=== PATIENT | female | born 1960 | race Caucasian/White ===

== ENCOUNTER 2025-01-14 17:16 | Emergency (ER) | payer MEDICARE, MEDICAID, SELFPAY ==
--- NOTE | ~2025-01-14 | US_ITS ---
CLINICAL HISTORY: pain Venous duplex ultrasound left upper extremity Comparison: None provided Findings: Accessible deep venous segments are fully compressible with normal Doppler color flow and spectral tracings. IMPRESSION: 1. Negative for left upper extremity deep vein thrombosis. This document has been electronically signed by: Carlos Collins MD on 01/14/2025 19:01:52
[2025-01-14 17:58] VITALS: BP 183/86; PULSE 102; RESP 20; TEMP 36.6; O2SAT 98; BMI 33.2
--- NOTE | 2025-01-14 17:58 | ED.GENADULT ---
HPI - General Adult General Chief complaint: Extremity Injury, Upper Stated complaint: left arm red and swollen Time Seen by Provider: 01/14/25 18:55 History of Present Illness ED Provider: Danilo Alvarado MD HPI narrative: [age] female with remote left forearm orthopedic surgery with hardware. She developed a few days ago mild swelling and redness of the left dorsal forearm she was evaluated at [facility] including with orthopedic consultation there. She comes back in for evaluation of pain. She has not been taking any medications. Was not prescribed antibiotics. Related Data Previous Rx's ?Medication ?Instructions ?Recorded cefadroxil 500 mg capsule 500 mg PO BID 7 days #14 caps 01/14/25 Allergies Allergy/AdvReac Type Severity Reaction Status Date / Time diclofenac Allergy Unknown Unknown Verified 01/14/25 18:01 fluoxetine (Prozac) Allergy Unknown Unknown Verified 01/14/25 18:01 pneumococcal vaccine Allergy Unknown Unknown Verified 01/14/25 18:01 Sulfa (Sulfonamide Allergy Unknown Unknown Verified 01/14/25 18:01 Antibiotics) tramadol Allergy Unknown Unknown Verified 01/14/25 18:01 vancomycin Allergy Unknown Unknown Verified 01/14/25 18:01 [facility] Social History Social History Advance Directives: Yes Advance Directives on File: Yes Advance Directives Date on File: 01/14/25 Do you have a plan to hurt others: No Plan Physical Exam ED Exam Exam: GENERAL: Well appearing. No apparent distress. Alert. HEAD/NECK: No visual trauma. EYES: Normal to inspection. No conjunctival erythema. No discharge. ENMT: Hearing grossly normal. External nose normal. RESPIRATORY: Respiratory effort normal. CARDIOVASCULAR: Additional details (Grossly well perfused). SKIN: No jaundice. Mild erythema with induration bout 8 cm x 3 cm left dorsal forearm directly overlying the mid radius and nearby remote surgical scar. There was no diffuse or circumferential swelling. No breaks in the skin. No fluctuance underlying this. She has intact and painless supination pronation. Elbow is without effusion and has full range of motion. Upper arm unremarkable. Neurovascularly intact limb left upper extremity NEUROLOGICAL: Alert. Moving all extremities x4. Additional details (No gross motor deficits. Normal tone. ). PSYCHIATRIC: Alert. Appearance appropriate for situation. Vital Signs: Vital Signs - 24 hr 01/14/25 17:58 Temperature 97.8 F Pulse Rate 102 H Respiratory Rate 20 Blood Pressure 183/86 H Pulse Oximetry 98 Oxygen Delivery Method Room Air BMI result Body Mass Index 33.2 Course Course Course Narrative: RME, this is a rapid medical exam performed by Johnny Grier please refer to primary provider for complete H&P- 64-year-old female presents for evaluation of left arm pain and swelling. It has been like that for the last 3 or 4 days. She went to [facility] and had blood work but was ultimately discharged without any treatment. She does have a history of factor 5 Leiden. Plan for an ultrasound to rule out DVT and labs. She is anticoagulated on Eliquis Medications Administered Discontinued Medications Generic Name Dose Route Start Last Admin Trade Name Freq PRN Reason Stop Dose Admin Cephalexin HCl 500 mg 01/14/25 19:33 01/14/25 19:52 Cephalexin 500 Mg Capsule PO 01/14/25 19:34 500 mg ONCE ONE Administration Medical Decision Making Medical Decision Making MDM Narrative: Medical Decision Making: [age] female with left arm pain redness. I was able to review [facility] notes which revealed an x-ray showing no malpositioning of the hardware see below. The patient's without constitutional symptoms. No circumferential swelling of the left arm. DVT excluded a left upper extremity by ultrasound here. Focal area of erythema and induration is quite mild appearing she does not report significant spreading since her ED visit yesterday. I feel this is probably simple cellulitis though can not completely exclude in infected hardware. Orthopedics did see her at [facility] in did not indicate that she required any operative management. I would suggest the patient follow up with Orthopedics here we will start her on oral antibiotics for presumed cellulitis uncomplicated. Certainly no gas, rapid spreading or constitutional symptoms/hemodynamic instability Preliminary Favored Differential Diagnosis: Cellulitis, dermatitis, focal allergic reaction, deep musculoskeletal infection less likely, deep or hardware involves infection less likely among additional considered etiologies Testing Interpreted Independently: ?See below for details Radiology or Lab testing Results Reviewed: ?See below for details Consults: ?See below for details Independent Historians/External Chart Reviews: ?See below for details Social Determinants of Health Impacting MDM/Planning: ?See below for details External Record Review External record reviewed: Outside ED record ([facility] see below) I read the orthopedics consult from [facility]: XRAY shows plate without gas, or gross hardware malpositioning. Left forearm pain (M79.632):?S/p?radial shaft ORIF 40 years ago in [place] Plan: No acute orthopedic surgical intervention indicated at this time.? There is no concerns?for?infection, compartment syndrome, vascular injury at this time.??She may use a sling?as needed for offloading. ?Ice and elevation as needed for pain and edema control.? She is advised?to schedule follow-up at [facility] office after discharge?and can call the office at [phone] for an appointment.? Questions asked and answered. ?She was provided with return precautions. Tendon station: Dr. Babak Gar Discharge Plan Discharge Clinical Impression: Cellulitis Patient Disposition: Home, Self-Care Instructions: Cellulitis (ED) Additional Instructions: DISCHARGE DIAGNOSES: Likely cellulitis of the left forearm HISTORY OF PRESENTATION: ?Redness swelling pain in the left forearm and left upper arm EMERGENCY DEPARTMENT COURSE,TESTS, TREATMENTS: While in the ED today you had an ultrasound that excludes blood clot. Blood work was ordered initially but I do not feel it needed to be performed. You had no fever and no rapid spread of the infected appearing area. X-ray was reviewed without hardware malpositioning from [facility] yesterday. DISCHARGE MEDICATIONS: ?[We have made no changes to your regular medication regimen] we have added Keflex to your regimen for 1 week FOLLOW-UP: ?Call your primary or general physician soon as possible to discuss your symptoms, your ED visit and to discuss follow up plans Continue with previously recommended orthopedic follow up [facility] or call our orthopedic office given that the area of infection is directly overlying remote orthopedic hardware INSTRUCTIONS ?& RETURN PRECAUTIONS: If any symptoms change first call your primary physician, if it is after-hours your primary doctors office should have a provider control clerk head you can speak with. If the symptoms are severe or very concerning to you then call 911 or return to the ED. Danilo Alvarado MD Emergency Physician [facility] Prescriptions: New cefadroxil 500 mg capsule 500 mg PO BID 7 Days Qty: 14 0RF Referrals: [facility] [Provider Group, Hand Surgery] Referral Note: If you continued to have pain redness or it worsens call orthopedics for follow up Interventions: ED Discharge Assessment Last Done: 01/14/25 20:10 Discharge Date/Time: 01/14/25 20:12 Print Language: Surinamese
--- NOTE | 2025-01-14 19:33 | MHC.EDTECH ---
Attempted to draw blood, labs verbally canceled to this tech per DO Christiano
[2025-01-14 20:10] VITALS: BP 148/88; PULSE 89; RESP 20; TEMP 36.6; O2SAT 99
--- OUTSIDE RECORDS SUMMARY | 2025-01-14 21:47 | XMS_ITS | Clinical Summary ---
Author Organization [facility] ity Address [address] [place] [address] Care Team Providers Care Audio Engineer Name Role Phone Unavailable Primary Care Provider Unavailabl e Social History Tobacco Use Types Packs/Day Years Used Date Smoking Tobacco: Never Assessed Comments Unknown Sex and Gender Information Value Date Recorded Sex Assigned at Not on file Legal Sex Female 11:05 AM EST Gender Identity Not on file Sexual Orientation Not on file Plan of Treatment Health Maintenance Due Date Last Done Comments Breast Cancer Screening 1960 DTaP,Tdap,and Td Vaccines (1 - Tdap) 1977 Pneumococcal Vaccine: 50+ Ye ars (1 of 1 - PCV) 2008 Zoster Vaccines (1 of 2) 2008 Depression Screening 03/27/2024 COVID-19 Vaccine (1 - 2023-2 5 season) 2024 Influenza Vaccine (#1) 2024 RSV Immunization Adult Patie nts (1 - 1-dose 75+ series) 2033 HIB Vaccines Aged Out No longer eligi ble based on patient's age to complete this topic HPV Vaccines Aged Out No longer eligi ble based on patient's age to complete this topic Hepatitis A Vaccines Aged Out No long er eligible based on patient's age to complete this topic Hepatitis B Vaccines Aged Out No long er eligible based on patient's age to complete this topic IPV Vaccines Aged Out No longer eligi ble based on patient's age to complete this topic MMR Vaccines Aged Out No longer eligi ble based on patient's age to complete this topic Meningococcal ACWY Vaccine Aged Out N o longer eligible based on patient's age to complete this topic Meningococcal B Vaccine Aged Out No l onger eligible based on patient's age to complete this topic RSV Immunization Patients Un katie 20 months Aged Out No longer eligible b ased on patient's age to complete this topic Varicella Vaccines Aged Out No longer eligible based on patient's age to complete this topic
--- OUTSIDE RECORDS SUMMARY | 2025-01-24 20:00 | XMS_ITS | Clinical Summary ---
Author Organization Unknown Care Team Providers Care Case Liner Name Role Phone BEKA PORT DRIER, NONA Unavailable Unavailable SHANNAN RN, BREANNA Unavailable Unavailable Payers Payer Name Policy Type Policy Number Effective Date Expira tion Date MEDICARE - NGS [place] - PD [id number] Problems Condition Name Condition Details Condition Category Status Onset Date Resolution Date Last Treatment Date Treating Clinician Comments MIGRAINE, UNSP, NOT INTRACTABLE, WITHOUT STATUS MIGRAINOSUS Active 03-27 00:00: 00 VASCULAR DEMENTIA, MODERATE, WITH ANXIETY Active 03-27 00:00: 00 VASCULAR DEMENTIA, MODERATE, WITH MOOD DISTURBANCE Active 03-27 00:00: 00 DEPRESSION, UNSPECIFIED Active 03-27 00:00: 00 TYPE 2 DIABETES MELLITUS WITH DIABETIC NEUROPATHY, UNSP Active 03-27 00:00: 00 UNSPECIFIED ASTHMA, UNCOMPLICATE D Active 03-27 00:00: 00 ANEMIA, UNSPECIFIED Active 03-27 00:00: 00 ESSENTIAL (PRIMARY) HYPERTENSION Active 03-27 00:00: 00 OBESITY, UNSPECIFIED Active 03-27 00:00: 00 HYPERLIPIDEM IA, UNSPECIFIED Active 03-27 00:00: 00 PERSONAL HISTORY OF OTHER VENOUS THROMBOSIS AND EMBOLISM Active 03-27 00:00: 00 RADICULOPATH Y, LUMBAR REGION Active 03-27 00:00: 00 NONTOXIC MULTINODULAR GOITER Active 03-27 00:00: 00 MORBID (SEVERE) OBESITY DUE TO EXCESS CALORIES Active 03-27 00:00: 00 BODY MASS INDEX [BMI] 34.0-34.9, ADULT Active 03-27 00:00: 00 OTHER CHRONIC PAIN Active 03-27 00:00: 00 LOW BACK PAIN, UNSPECIFIED Active 03-27 00:00: 00 [facility] (CURRENT) USE OF ANTICOAGULAN TS Active 03-27 00:00: 00 Problems related to health literacy Active 03-27 00:00: 00 OTHER [facility] (CURRENT) DRUG THERAPY Active 03-27 00:00: 00 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 Active 03-27 00:00: 00 Allergies, Adverse Reactions, Alerts Allergy Name Allergy Type Status Severity Reaction(s) Onset Date Inactive Date Treating Clinician Comments TRAMADOL Propensity to adverse reactions Active 11-27 21:11: 36 PROZAC Propensity to adverse reactions Active 11-27 21:11: 48 ESCITALOPRAM Propensity to adverse reactions Active 11-27 21:12: 02 VANCOMYCIN Propensity to adverse reactions Active 11-27 21:12: 16 FLUOXETINE Propensity to adverse reactions Active 11-27 21:12: 27 DICLOFENAC Propensity to adverse reactions Active 11-27 21:13: 13 PNEUMOVAX Propensity to adverse reactions Active 11-27 21:13: 34 BACTRIM Propensity to adverse reactions Active 11-27 21:13: 45 Medications Ordered Medication Name Filled Medication Name Start Date Stop Date Current Medication? Ordering Clinician Indication Dosage Frequency Signature (SIG) Comments Components fluticasone propionate 50 mcg/actuati on nasal spray,suspe nsion 10-10 00:00: 00 Yes [id number] 1 spray DAILY 1 spray DAILY (route: nasal) Med Classific ation: Respirato ry Therapy Agents Dupixent 300 mg/2 mL subcutaneou s pen injector 10-09 00:00: 00 Yes [id number] 2 mL EVERY OTHER WEEK 2 mL EVERY OTHER WEEK (route: subcutaneo us) Med Classific ation: Dermatolo gical metoprolol succinate ER 25 mg tablet,exte nded release 24 hr 10-09 00:00: 00 Yes [id number] 1 tablet EVERY DAY FOR 90 DAYS 1 tablet EVERY DAY FOR 90 DAYS (route: oral) Med Classific ation: Cardiovas cular Therapy Agents aspirin 81 mg tablet,filemon yed release 10-02 00:00: 00 11-27 00:00 :00 No [id number] Per instruc tions DAILY Per instructio ns DAILY (route: oral) Med Classific ation: Hematolog ical Agents atorvastati n 80 mg tablet 10-02 00:00: 00 Yes [id number] 1 tablet EVERY DAY 1 tablet EVERY DAY (route: oral) Med Classific ation: Cardiovas cular Therapy Agents metformin ER 750 mg tablet,exte nded release 24 hr 10-02 00:00: 00 Yes [id number] 1 tablet EVERY DAY 1 tablet EVERY DAY (route: oral) Med Classific ation: Endocrine montelukast 10 mg tablet 09-29 00:00: 00 Yes [id number] 1 tablet DAILY IN THE EVENING FOR 30 DAYS 1 tablet DAILY IN THE EVENING FOR 30 DAYS (route: oral) Med Classific ation: Respirato ry Therapy Agents hydroxyzine HCl 25 mg tablet 09-18 00:00: 00 Yes [id number] 1 tablet TWICE A DAY NEEDED 1 tablet TWICE A DAY NEEDED (route: oral) Med Classific ation: Central Nervous System Agents acetaminoph en 500 mg tablet 11-27 00:00: 00 Yes [id number] 2 tablet 3 TIMES DAILY 2 tablet 3 TIMES DAILY (route: oral) Med Classific ation: Analgesic , Anti-infl ammatory or Antipyret ic albuterol sulfate 2.5 mg/3 mL (0.083 %) solution for nebulizatio n 11-27 00:00: 00 Yes [id number] 2.5 mL EVERY 6 HOURS 2.5 mL EVERY 6 HOURS (route: inhalation ) Med Classific ation: Respirato ry Therapy Agents cetirizine 10 mg tablet 11-27 00:00: 00 Yes [id number] 1 tablet DAILY 1 tablet DAILY (route: oral) Med Classific ation: Respirato ry Therapy Agents cyanocobala min (vit B-12) 500 mcg tablet 11-27 00:00: 00 Yes [id number] 1 tablet DAILY 1 tablet DAILY (route: oral) Med Classific ation: Electroly te Balance-N utritiona l Products duloxetine 20 mg capsule,del ayed release 11-27 00:00: 00 Yes [id number] 2 capsule DAILY 2 capsule DAILY (route: oral) Med Classific ation: Central Nervous System Agents Eliquis 5 mg tablet 11-27 00:00: 00 Yes [id number] 1 tablet 2 TIMES DAILY 1 tablet 2 TIMES DAILY (route: oral) Med Classific ation: Hematolog ical Agents ezetimibe 10 mg tablet 11-27 00:00: 00 Yes [id number] 1 tablet DAILY 1 tablet DAILY (route: oral) Med Classific ation: Cardiovas cular Therapy Agents ferrous sulfate 325 mg (65 mg iron) tablet 11-27 00:00: 00 Yes [id number] 1 tablet DAILY 1 tablet DAILY (route: oral) Med Classific ation: Electroly te Balance-N utritiona l Products Jardiance 10 mg tablet 11-27 00:00: 00 Yes [id number] 1 tablet DAILY 1 tablet DAILY (route: oral) Med Classific ation: Endocrine losartan 25 mg tablet 11-27 00:00: 00 Yes [id number] 2 tablet DAILY 2 tablet DAILY (route: oral) Med Classific ation: Cardiovas cular Therapy Agents omeprazole 20 mg capsule,del ayed release 11-27 00:00: 00 Yes [id number] 2 capsule DAILY 2 capsule DAILY (route: oral) Med Classific ation: Gastroint estinal Therapy Agents riboflavin (vitamin B2) 400 mg tablet 11-27 00:00: 00 Yes [id number] 1 tablet DAILY 1 tablet DAILY (route: oral) Med Classific ation: Electroly te Balance-N utritiona l Products Spiriva Respimat 1.25 mcg/actuati on solution for inhalation 11-27 00:00: 00 Yes [id number] 2 puff DAILY 2 puff DAILY (route: inhalation ) Med Classific ation: Respirato ry Therapy Agents Symbicort 160 mcg-4.5 mcg/actuati on HFA aerosol inhaler 11-27 00:00: 00 Yes [id number] 2 puff 2 TIMES DAILY 2 puff 2 TIMES DAILY (route: inhalation ) Med Classific ation: Respirato ry Therapy Agents teriparatid e 20 mcg/dose (560 mcg/2.24 mL) subcutaneou s pen injector 11-27 00:00: 00 Yes [id number] 20 mcg DAILY 20 mcg DAILY (route: subcutaneo us) Med Classific ation: Endocrine topiramate 50 mg tablet 11-27 00:00: 00 Yes [id number] 1 tablet DAILY 1 tablet DAILY (route: oral) Med Classific ation: Central Nervous System Agents Ventolin HFA 90 mcg/actuati on aerosol inhaler 11-27 00:00: 00 Yes [id number] 1 puff EVERY 6 HOURS 1 puff EVERY 6 HOURS (route: inhalation ) Med Classific ation: Respirato ry Therapy Agents escitalopra m 5 mg tablet 12-13 00:00: 00 Yes [id number] 1 tablet DAILY 1 tablet DAILY (route: oral) Med Classific ation: Central Nervous System Agents Immunizations Ordered Immunization Name Filled Immunization Name Date Status Comments Refusal Reason COVID-19, COVID-19 2023-07-17 00:00:00 Vital Signs Vital Name Observation Time Observation Value Commen ts Temperature 2025-01-08 09:05:00.000 98.4 [degF] Temperature 2024-12-30 12:19:00.000 97.1 [degF] Temperature 2024-12-24 13:21:00.000 97.6 [degF] Temperature 2024-12-18 09:03:00.000 98.1 [degF] Temperature 2024-12-11 09:52:00.000 98.2 [degF] Temperature 2024-12-04 10:25:00.000 98.7 [degF] Temperature 2024-11-27 11:13:00.000 96.9 [degF] BMI (%) 2024-11-27 11:13:00.000 34 kg/m2 Height 2024-11-27 11:13:00.000 59 [in_us] Pulse 2025-01-08 09:05:00.000 98 /min Pulse 2024-12-30 12:19:00.000 71 /min Pulse 2024-12-24 13:21:00.000 98 /min Pulse 2024-12-18 09:03:00.000 78 /min Pulse 2024-12-11 09:52:00.000 78 /min Pulse 2024-12-04 10:25:00.000 78 /min Pulse 2024-11-27 11:13:00.000 87 /min O2 Saturation (%) 2025-01-08 09:05:00.000 98 % O2 Saturation (%) 2024-12-30 12:19:00.000 97 % O2 Saturation (%) 2024-12-24 13:21:00.000 96 % O2 Saturation (%) 2024-12-18 09:03:00.000 98 % O2 Saturation (%) 2024-12-11 09:52:00.000 96 % O2 Saturation (%) 2024-12-04 10:25:00.000 94 % O2 Saturation (%) 2024-11-27 11:13:00.000 98 % Respirations 2025-01-08 09:05:00.000 20 /min Respirations 2024-12-30 12:19:00.000 20 /min Respirations 2024-12-24 13:21:00.000 20 /min Respirations 2024-12-18 09:03:00.000 20 /min Respirations 2024-12-11 09:52:00.000 22 /min Respirations 2024-12-04 10:25:00.000 18 /min Respirations 2024-11-27 11:13:00.000 20 /min Weight (lbs) 2024-11-27 11:13:00.000 170 [lb_av] Systolic Blood Pressure 2025-01-08 09:05:00.000 138 mm [Hg] Systolic Blood Pressure 2024-12-30 12:19:00.000 104 mm [Hg] Systolic Blood Pressure 2024-12-24 13:21:00.000 146 mm [Hg] Systolic Blood Pressure 2024-12-18 09:03:00.000 108 mm [Hg] Systolic Blood Pressure 2024-12-11 09:52:00.000 132 mm [Hg] Systolic Blood Pressure 2024-12-04 10:25:00.000 126 mm [Hg] Systolic Blood Pressure 2024-11-27 11:13:00.000 110 mm [Hg] Diastolic Blood Pressure 2025-01-08 09:05:00.000 82 mm [Hg] Diastolic Blood Pressure 2024-12-30 12:19:00.000 70 mm [Hg] Diastolic Blood Pressure 2024-12-24 13:21:00.000 82 mm [Hg] Diastolic Blood Pressure 2024-12-18 09:03:00.000 78 mm [Hg] Diastolic Blood Pressure 2024-12-11 09:52:00.000 78 mm [Hg] Diastolic Blood Pressure 2024-12-04 10:25:00.000 70 mm [Hg] Diastolic Blood Pressure 2024-11-27 11:13:00.000 70 mm [Hg] Plan of Treatment Planned Activity Planned Date Details Comments Future Scheduled Test SKILLED NU RSE TO EVALUATE PATIENT, IDENTIFY PRIMARY AND CO-MORBID CONDITIONS CODED PER CODING GUIDELINES, AND DEVELOP PATIENT SPECIFIC PLAN OF CARE THAT INCLUDES PATIENT GOAL FOR HOME HEALTH. [code = SKILLED NURSE TO EVALUATE PATIENT, IDENTIFY PRIMARY AND CO-MORBID CONDITIONS CODED PER CODING GUIDELINES, AND DEVELOP PATIENT SPECIFIC PLAN OF CARE THAT INCLUDES PATIENT GOAL FOR HOME HEALTH.] Future Scheduled Test SKILLED NU RSE TO ASSESS ANXIETY AND PROVIDE ASSISTANCE TO PATIENT FOR UNDERSTANDING AND MANAGEMENT OF FEELINGS. [code = SKILLED NURSE TO ASSESS ANXIETY AND PROVIDE ASSISTANCE TO PATIENT FOR UNDERSTANDING AND MANAGEMENT OF FEELINGS.] Future Scheduled Test SKILLED NU RSE FOR O/A OF RESPIRATORY SYSTEM TO IDENTIFY CHANGES ASSOCIATED WITH EXACERBATION AND TO PROVIDE SKILLED TEACHING ON MANAGEMENT OF ASTHMA PROCESS. [code = SKILLED NURSE FOR O/A OF RESPIRATORY SYSTEM TO IDENTIFY CHANGES ASSOCIATED WITH EXACERBATION AND TO PROVIDE SKILLED TEACHING ON MANAGEMENT OF ASTHMA PROCESS.] Future Scheduled Test SKILLED NU RSE TO OBTAIN BLOOD SUGAR PRN FOR SIGNS AND SYMPTOMS OF HYPO/HYPERGLYCEMIA. IF OBTAINED BY PATIENT/CAREGIVER PRIOR TO VISIT AND PATIENT IS NOT SYMPTOMATIC, SKILLED NURSE TO RECORD READING FROM PATIENT LOG. [code = SKILLED NURSE TO OBTAIN BLOOD SUGAR PRN FOR SIGNS AND SYMPTOMS OF HYPO/HYPERGLYCEMIA. IF OBTAINED BY PATIENT/CAREGIVER PRIOR TO VISIT AND PATIENT IS NOT SYMPTOMATIC, SKILLED NURSE TO RECORD READING FROM PATIENT LOG.] Future Scheduled Test SKILLED NU RSE FOR O/A TO IDENTIFY CHANGES ASSOCIATED WITH MIGRAINE, L SIDED WEAKNESS PROVIDE INSTRUCTION RELATED TO SAFETY MEASURES TO PREVENT INJURY SECONDARY TO IMPAIRED NEUROLOGICAL STATUS. SKILLED NURSE TO REPORT SIGNIFICANT CHANGES OF NEUROLOGIC STATUS TO PHYSICIAN FOR EARLY INTERVENTION. [code = SKILLED NURSE FOR O/A TO IDENTIFY CHANGES ASSOCIATED WITH MIGRAINE, L SIDED WEAKNESS PROVIDE INSTRUCTION RELATED TO SAFETY MEASURES TO PREVENT INJURY SECONDARY TO IMPAIRED NEUROLOGICAL STATUS. SKILLED NURSE TO REPORT SIGNIFICANT CHANGES OF NEUROLOGIC STATUS TO PHYSICIAN FOR EARLY INTERVENTION.] Future Scheduled Test SKILLED NU RSE TO PROVIDE TEACHING ON SIGNS AND SYMPTOMS AND MANAGEMENT OF HYPERTENSION. [code = SKILLED NURSE TO PROVIDE TEACHING ON SIGNS AND SYMPTOMS AND MANAGEMENT OF HYPERTENSION.] Future Scheduled Test SKILLED NU RSE FOR O/A AND SKILLED TEACHING RELATED TO SIGNS AND SYMPTOMS AND MANAGEMENT OF ANEMIA. [code = SKILLED NURSE FOR O/A AND SKILLED TEACHING RELATED TO SIGNS AND SYMPTOMS AND MANAGEMENT OF ANEMIA.] Future Scheduled Test SKILLED NU RSE FOR O/A AND TEACHING OF DIABETIC MANAGEMENT INCLUDING BLOOD SUGAR MONITORING/USE OF GLUCOMETER, DIABETIC DIET, LOWER EXTREMITY SKIN INSPECTION, PROPER SKIN/FOOT CARE, AND SIGNS AND SYMPTOMS HYPO/HYPERGLYCEMIA TO REPORT. [code = SKILLED NURSE FOR O/A AND TEACHING OF DIABETIC MANAGEMENT INCLUDING BLOOD SUGAR MONITORING/USE OF GLUCOMETER, DIABETIC DIET, LOWER EXTREMITY SKIN INSPECTION, PROPER SKIN/FOOT CARE, AND SIGNS AND SYMPTOMS HYPO/HYPERGLYCEMIA TO REPORT.] Future Scheduled Test PATIENT ZARATE S A RISK OF HOSPITALIZATION AND ED USE. SKILLED NURSE TO ESTABLISH SUPPORT MEASURES TO MINIMIZE RISK OF HOSPITALIZATION AND ED USE, AND INSTRUCT PATIENT/CAREGIVER ON METHODS TO REDUCE AVOIDABLE HOSPITALIZATION AND ED USE. [code = PATIENT HAS A RISK OF HOSPITALIZATION AND ED USE. SKILLED NURSE TO ESTABLISH SUPPORT MEASURES TO MINIMIZE RISK OF HOSPITALIZATION AND ED USE, AND INSTRUCT PATIENT/CAREGIVER ON METHODS TO REDUCE AVOIDABLE HOSPITALIZATION AND ED USE.] Future Scheduled Test SKILLED NU RSE TO PROVIDE INSTRUCTION TO PATIENT/CAREGIVER RELATED TO DISCHARGE PLANNING. [code = SKILLED NURSE TO PROVIDE INSTRUCTION TO PATIENT/CAREGIVER RELATED TO DISCHARGE PLANNING.] Future Scheduled Test SKILLED NU RSE TO PERFORM ENVIRONMENTAL SAFETY RISK ASSESSMENT AND FALL RISK ASSESSMENT AND PROVIDE INSTRUCTION TO IMPLEMENT ENVIRONMENTAL SAFETY AND FALL PREVENTION STRATEGIES THROUGHOUT THE CERTIFICATION PERIOD. SKILLED NURSE WILL MAINTAIN SITUATIONAL AWARENESS AND WILL NOTIFY CLINICAL SPIRAL TUBE WINDER AND PHYSICIAN/PROVIDER WITH ANY CHANGE IN CONDITION. [code = SKILLED NURSE TO PERFORM ENVIRONMENTAL SAFETY RISK ASSESSMENT AND FALL RISK ASSESSMENT AND PROVIDE INSTRUCTION TO IMPLEMENT ENVIRONMENTAL SAFETY AND FALL PREVENTION STRATEGIES THROUGHOUT THE CERTIFICATION PERIOD. SKILLED NURSE WILL MAINTAIN SITUATIONAL AWARENESS AND WILL NOTIFY CLINICAL SPIRAL TUBE WINDER AND PHYSICIAN/PROVIDER WITH ANY CHANGE IN CONDITION.] Future Scheduled Test SKILLED NU RSE FOR OBSERVATION AND ASSESSMENT OF PATIENT S PAIN LEVEL AND EFFECTIVENESS OF PAIN MANAGEMENT REGIMEN. SKILLED NURSE TO INSTRUCT PATIENT/CAREGIVER REGARDING PHARMACOLOGIC AND NON-PHARMACOLOGIC PAIN CONTROL MEASURES. SKILLED NURSE TO REPORT TO PHYSICIAN IF PAIN LEVEL IS OUTSIDE OF ESTABLISHED PARAMETERS. [code = SKILLED NURSE FOR OBSERVATION AND ASSESSMENT OF PATIENT S PAIN LEVEL AND EFFECTIVENESS OF PAIN MANAGEMENT REGIMEN. SKILLED NURSE TO INSTRUCT PATIENT/CAREGIVER REGARDING PHARMACOLOGIC AND NON-PHARMACOLOGIC PAIN CONTROL MEASURES. SKILLED NURSE TO REPORT TO PHYSICIAN IF PAIN LEVEL IS OUTSIDE OF ESTABLISHED PARAMETERS.] Future Scheduled Test SKILLED NU RSE TO ASSESS PATIENT'S SKIN INTEGRITY AND INSTRUCT PATIENT/CAREGIVER ON MEASURES TO PREVENT PRESSURE ULCERS. [code = SKILLED NURSE TO ASSESS PATIENT'S SKIN INTEGRITY AND INSTRUCT PATIENT/CAREGIVER ON MEASURES TO PREVENT PRESSURE ULCERS.] Future Scheduled Test SKILLED NU RSE TO PROVIDE ASSESSMENT AND TEACHING/REINFORCEMENT OF MANAGEMENT OF DEPRESSION INCLUDING DISEASE PROCESS, MEDICATION MANAGEMENT, COPING SKILLS AND IDENTIFY CHANGES ASSOCIATED WITH DEPRESSIVE DISORDERS FOR EARLY INTERVENTION. [code = SKILLED NURSE TO PROVIDE ASSESSMENT AND TEACHING/REINFORCEMENT OF MANAGEMENT OF DEPRESSION INCLUDING DISEASE PROCESS, MEDICATION MANAGEMENT, COPING SKILLS AND IDENTIFY CHANGES ASSOCIATED WITH DEPRESSIVE DISORDERS FOR EARLY INTERVENTION.] Future Scheduled Test SKILLED NU RSE TO INSTRUCT PATIENT/CAREGIVER ON S/S OF NEUROPATHY AND METHODS TO MANAGE. [code = SKILLED NURSE TO INSTRUCT PATIENT/CAREGIVER ON S/S OF NEUROPATHY AND METHODS TO MANAGE.] Future Scheduled Test SKILLED NU RSE TO REVIEW PATIENT MEDICATIONS (PRESCRIPTION/OTC). INSTRUCT PATIENT/CAREGIVER ON ALL MEDICATIONS INCLUDING PURPOSE, WHEN TO TAKE, IMPORTANCE OF MEDICATION ADHERENCE, MONITORING OF EFFECTIVENESS, ADVERSE DRUG REACTIONS, POSSIBLE SIDE EFFECTS, AND WHEN TO NOTIFY AGENCY OR PHYSICIAN/PROVIDER OF ANY CONCERNS. [code = SKILLED NURSE TO REVIEW PATIENT MEDICATIONS (PRESCRIPTION/OTC). INSTRUCT PATIENT/CAREGIVER ON ALL MEDICATIONS INCLUDING PURPOSE, WHEN TO TAKE, IMPORTANCE OF MEDICATION ADHERENCE, MONITORING OF EFFECTIVENESS, ADVERSE DRUG REACTIONS, POSSIBLE SIDE EFFECTS, AND WHEN TO NOTIFY AGENCY OR PHYSICIAN/PROVIDER OF ANY CONCERNS.] Goal Patient Goal - TO GET BETTER Goal Provider Goal - A PLAN OF CARE WILL BE ESTABLISHED THAT MEETS PATIENT'S CUSTODIAL NEEDS AND INCLUDES PATIENT GOAL FOR HOME HEALTH. Goal Provider Goal - SYMPTOMS OF ANXIETY ARE IDENTIFIED AND INTERVENTIONS INITIATED TO ENABLE PATIENT TO UNDERSTAND AND MANAGE FEELINGS THROUGHOUT EPISODE. Goal Provider Goal - PATIENT/CAREGIVER WILL VERBALIZE/DEMONSTRATE MANAGEMENT OF RESPIRATORY DISEASE PROCESS. CHANGES IN RESPIRATORY STATUS WILL BE IDENTIFIED AND REPORTED TO PHYSICIAN FOR PROMPT INTERVENTION THROUGHOUT THE CERTIFICATION PERIOD. Goal Provider Goal - BLOOD SUGAR READING WILL BE OBTAINED ORDERED THROUGHOUT CERTIFICATION PERIOD. Goal Provider Goal - CHANGES IN NEUROLOGIC STATUS WILL BE IDENTIFIED AND REPORTED TO THE PHYSICIAN FOR PROMPT INTERVENTION OF ASSOCIATED RISK. PATIENT/CAREGIVER WILL VERBALIZE/DEMONSTRATE APPROPRIATE SAFETY MEASURES TO PREVENT INJURY BY THE END OF THE CERTIFICATION PERIOD. Goal Provider Goal - PATIENT/CAREGIVER WILL VERBALIZE SIGNS AND SYMPTOMS OF HYPERTENSION AND WILL BE ABLE TO DEMONSTRATE ABILITY TO MANAGE EXACERBATION BY END OF THE EPISODE. Goal Provider Goal - PATIENT/CARGIVER WILL VERBALIZE UNDERSTANDING OF ANEMIA INCLUDING SIGNS AND SYMPTOMS, MANAGEMENT OF COMPLICATIONS, AND PRESCRIBED TREATMENT REGIMEN BY END OF EPISODE. Goal Provider Goal - PATIENT/CAREGIVER WILL VERBALIZE/DEMONSTRATE KNOWLEDGE OF DIABETIC MANAGEMENT. CHANGES IN DIABETIC STATUS WILL BE IDENTIFIED AND REPORTED TO PHYSICIAN FOR PROMPT INTERVENTION THROUGHOUT THE CERTIFICATION PERIOD. Goal Provider Goal - PATIENT WILL HAVE SUPPORT MEASURES ESTABLISHED TO PREVENT HOSPITALIZATION AND ED USE AND PATIENT/CAREGIVER WILL VERBALIZE/DEMONSTRATE METHODS TO REDUCE AVOIDABLE HOSPITALIZATION AND ED USE BY END OF EPISODE. Goal Provider Goal - PATIENT/CAREGIVER WILL VERBALIZE UNDERSTANDING OF DISCHARGE PLANNING INSTRUCTIONS BY DATE OF DISCHARGE. Goal Provider Goal - PATIENT/CAREGIVER WILL VERBALIZE/DEMONSTRATE EFFECTIVE ENVIRONMENTAL SAFETY AND FALL PREVENTION STRATEGIES, WILL REMAIN SAFE IN THE COMMUNITY, AND WILL BE FREE OF DANGER TO SELF AND OTHERS THROUGHOUT THE CERTIFICATION PERIOD. Goal Provider Goal - PATIENT/CAREGIVER WILL DEMONSTRATE UNDERSTANDING OF PHARMACOLOGIC AND NONPHARMACOLOGIC PAIN CONTROL MEASURES AND PATIENT WILL HAVE IMPROVEMENT IN PAIN INTERFERING WITH ACTIVITY EVIDENCED BY PAIN AT A LEVEL THAT IS ACCEPTABLE TO THE PATIENT AND PAIN LEVEL WITHIN ESTABLISHED PARAMETERS BY END OF CERTIFICATION PERIOD. Goal Provider Goal - PATIENT/CAREGIVER WILL VERBALIZE UNDERSTANDING OF PRESSURE ULCER PREVENTION BY END OF THE EPISODE. Goal Provider Goal - PATIENT/CAREGIVER WILL VERBALIZE/DEMONSTRATE UNDERSTANDING OF THE MANAGEMENT OF DEPRESSION THROUGHOUT THE CERTIFICATION PERIOD AND SYMPTOMS ARE IDENTIFIED AND MANAGED TO MAINTAIN PATIENT SAFETY IN THE HOME. Goal Provider Goal - PATIENT/CAREGIVER WILL VERBALIZE S/S OF NEUROPATHY AND METHODS TO MANAGE BY END OF CERTIFICATION PERIOD. Goal Provider Goal - PATIENT/CAREGIVER WILL VERBALIZE UNDERSTANDING OF EDUCATION PROVIDED ON MEDICATIONS BY THE END OF THE CERTIFICATION PERIOD. Encounters Start Date/Time End Date/Time Encounter Type Admission Type Attending [facility] Care Facility Care Department Encounter ID Discharge Date Discharge Status Discharge Condition Discharge Reason Percent Goals Met 2024-11-27 00:00:00 2025-01-25 00:00:00 Outpatient BREANNA DAVIS [facility] [id number]
== END 2025-01-14 20:12 | disposition home or self-care (01) ==
PROVIDERS: Emergency Provider Emergency Medicine; PCP Nurse Practitioner Family
DX: L03.114 Cellulitis of left upper limb (principal); R60.0 Localized edema
CPT/HCPCS: 93971; 99282; 99284

== ENCOUNTER → 2025-01-14 18:00 | Outpatient (BNV) | payer MEDICARE, MEDICAID, SELFPAY | PROVIDERS: Emergency Provider Emergency Medicine; PCP Nurse Practitioner Family; Visit Provider Nuclear Medicine | DX: M79.622 Pain in left upper arm (principal) | CPT/HCPCS: 93971 ==